=== PATIENT | female | born 1970 | race Hispanic/Latino ===

== ENCOUNTER 2018-04-02 15:07 | Emergency (ER) | payer SELFPAY ==
[2018-04-02] MEDS ORDERED: LIDOCAINE 5% TOPICAL PATCH TP ONE (15:18)
[2018-04-02] MEDS ORDERED: DIAZEPAM 5 MG TABLET ONE (15:19)
[2018-04-02] MEDS ORDERED: KETOROLAC TROMETHAMINE 30MG/ML ONE (15:19)
== END 2018-04-02 17:22 | disposition home or self-care (01) ==
LOC: EDH 15:07
DX: M54.16 Radiculopathy, lumbar region (principal)
CPT/HCPCS: 96372; 99283; J1885

== ENCOUNTER 2018-09-21 00:05 | Emergency (ER) | payer OTHER ==
[2018-09-21] MEDS ORDERED: TETANUS/DIPHTHERIA TOXOID [ADULT] 0.5 ML VIAL IM ONE (00:18)
[2018-09-21] MEDS ORDERED: OCTYL 2-CYANOACRYLATE 1 EACH TP ONE (00:39)
== END 2018-09-21 01:30 | disposition home or self-care (01) ==
LOC: EDH 00:05
DX: S61.211A Laceration without foreign body of left index finger without damage to nail, initial encounter (principal); W26.0XXA Contact with knife, initial encounter; Y93.89 Activity, other specified; Y92.69 Other specified industrial and construction area as the place of occurrence of the external cause; Y99.8 Other external cause status
CPT/HCPCS: 12041; 90471; 90714